=== PATIENT | male | born 1970 | race Caucasian/White ===

== ENCOUNTER 2017-07-07 07:59 | Inpatient (IN) | payer MEDICARE, OTHER ==
[~2017-07-07] VITALS: Ht 180.3 cm; Wt 97.8 kg
[~2017-07-07 07:59] MED LIST: ADDE10 PO; DULO60CA44 PO; RINGERS SOLUTION,LACTATED 1,000 ML IV ONE
[2017-07-07 08:24] LABS: BASOPHILS % (AUTO) 0.4 % (0.0-2.0); EOSINOPHILS % (AUTO) 2.3 % (1.0-6.0); HEMATOCRIT 43.4 % (41-53); HEMOGLOBIN 14.7 g/dL (13.5-17.5); LYMPHOCYTES # (AUTO) 1.9 K/uL (1.0-4.8); LYMPHOCYTES % (AUTO) 29.4 % (22.0-44.0); MEAN CORPUSCULAR HEMOGLOBIN 30.9 pg (26.0-34.0); MEAN CORPUSCULAR VOLUME 91 fL (80-100); MONOCYTES # (AUTO) 0.5 K/uL (0.1-1.0); MONOCYTES % (AUTO) 7.3 % (2.0-9.0); NEUTROPHILS # (AUTO) 3.8 K/uL (1.8-7.7); NEUTROPHILS % (AUTO) 60.6 % (40.0-70.0); PLATELET COUNT (AUTO) 236 K/uL (150-450); RED BLOOD CELL COUNT(AUTO) 4.77 MIL/uL (4.50-5.90); RED CELL DISTRIBUTION WIDTH 12.8 % (11.5-14.5)
[2017-07-07] MEDS ORDERED: PROPOFOL 1000 MG/ISO-OSM 100 ML IV ONE (08:24)
[2017-07-07] MEDS ORDERED: KETAMINE HCL 50 MG/ML 10 ML VIAL ONE (08:25)
[2017-07-07] MEDS ORDERED: CeFAZolin 2 GM/DEXTROSE 50 ML IV ONE (08:30)
[2017-07-07] MEDS ORDERED: RINGERS SOLUTION,LACTATED 1,000 ML IV ONE ×2 (08:30→09:50)
[2017-07-07 08:35] LABS: CALCIUM, TOTAL 9.6 mg/dL (8.8-10.5); CREATININE 1.31 mg/dL (0.60-1.30); POTASSIUM 4.3 mmol/L (3.5-5.1)
[2017-07-07 08:41] LABS: ALBUMIN 4.4 g/dL (3.4-5.0); BILIRUBIN,TOTAL 0.5 mg/dL (0.1-1.0); TOTAL PROTEIN, SERUM 7.5 g/dL (6.4-8.2)
[2017-07-07 08:49] LABS: PROTHROMBIN TIME 10.6 SEC (9.4-11.6)
[2017-07-07] MEDS ORDERED: MAG HYDROX/AL HYDROX/SIMETH 30 ML SUSP UDCUP PO PRN (09:15)
[2017-07-07] MEDS ORDERED: ZOLPIDEM TARTRATE 10 MG TABLET PO PRN ×2 (09:15→09:45)
[2017-07-07] MEDS ORDERED: DiphenhydrAMINE HCL 50 MG/ML VIAL IVP PRN (09:15)
[2017-07-07] MEDS ORDERED: DEXAMETHASONE SOD PHOS 4 MG/ML VIAL IVP PRN (09:15)
[2017-07-07] MEDS ORDERED: BENZOCAINE/MENTHOL LOZENGE [8 LOZENGES/PACKET] MM PRN (09:30)
[2017-07-07] MEDS: ACETAMINOPHEN 1000 MG/ISO-OSM 100 ML IV SCH ×2 (09:45→17:31)
[2017-07-07] MEDS ORDERED: DIAZEPAM 5 MG TABLET PO PRN (09:45)
[2017-07-07] MEDS ORDERED: MEPERIDINE-PF 25 MG/ML SYRINGE IVP PRN (09:45)
[2017-07-07] MEDS ORDERED: FentaNYL CITRATE-PF 100 MCG/2 ML VIAL ONE (10:55)
[2017-07-07] MEDS: FentaNYL CITRATE-PF 100 MCG/2 ML VIAL IVP PRN ×2 (10:56→11:15)
[2017-07-07] MEDS ORDERED: HYDROmorphone 2 MG/ML SYRINGE ONE (11:16)
[2017-07-07] MEDS: HYDROmorphone 2 MG/ML SYRINGE IVP PRN ×5 (11:24→19:07)
[2017-07-07] MEDS ORDERED: AMPHETAMINE/DEXTROAMPHETAMINE 10 MG TABLET PO SCH (11:45)
[2017-07-07] MEDS: DULoxetine HCL 60 MG CAPSULE PO SCH (11:45)
[2017-07-07 11:50] VITALS: BP 119/81
[2017-07-07] MEDS: CYCLOBENZAPRINE HCL 10 MG TABLET PO SCH ×2 (12:34→21:05)
[2017-07-07 14:37] VITALS: BP 124/76
[2017-07-07] MEDS ORDERED: INFLUENZA VIRUS VACCINE QVS 2017-18 (3YR+)/PF 60 MCG/0.5 ML SYRINGE IM ONE (15:15)
[2017-07-07 17:18] VITALS: BP 117/79
[2017-07-07] MEDS ORDERED: SODIUM CHLORIDE 0.9% 250 ML IV ONE (17:27)
[2017-07-07 19:53] VITALS: BP 110/69
[2017-07-07] MEDS: DOCUSATE SODIUM 100 MG CAPSULE PO SCH (21:05)
[2017-07-08] MEDS: ACETAMINOPHEN 1000 MG/ISO-OSM 100 ML IV SCH ×2 (01:32→09:38)
[2017-07-08] MEDS: HYDROmorphone 2 MG/ML SYRINGE IVP PRN (01:32)
[2017-07-08 01:33] VITALS: BP 116/71
[2017-07-08] MEDS ORDERED: LIDOCAINE HCL/PF 2% 5 ML VIAL IM ONE (04:41)
[2017-07-08] MEDS ORDERED: SUCCINYLCHOLINE CHLORIDE 20 MG/ML 10 ML VIAL IVP ONE (04:41)
[2017-07-08] MEDS ORDERED: NEOSTIGMINE METHYLSULFATE 1 MG/ML 10 ML VIAL IVP ONE (04:41)
[2017-07-08] MEDS ORDERED: PROPOFOL 1% 20 ML VIAL IVP ONE (04:41)
[2017-07-08] MEDS ORDERED: METOCLOPRAMIDE HCL 5 MG/ML 2 ML VIAL IVP ONE (04:41)
[2017-07-08] MEDS ORDERED: DEXAMETHASONE SOD PHOS 4 MG/ML VIAL IVP ONE (04:41)
[2017-07-08] MEDS ORDERED: GLYCOPYRROLATE 0.2 MG/ML VIAL IM ONE (04:41)
[2017-07-08] MEDS ORDERED: 0.9% SODIUM CHLORIDE 10 ML VIAL IVP ONE (04:41)
[2017-07-08] MEDS ORDERED: ROCURONIUM BROMIDE 10 MG/ML 5 ML VIAL IVP ONE (04:41)
[2017-07-08] MEDS ORDERED: ONDANSETRON HCL 4 MG/2 ML VIAL IVP ONE (04:41)
[2017-07-08 04:58] VITALS: BP 101/57
[2017-07-08] MEDS ORDERED: MIDAZOLAM HCL 2 MG/2 ML VIAL IVP ONE (05:44)
[2017-07-08] MEDS ORDERED: FentaNYL CITRATE-PF 100 MCG/2 ML VIAL IVP ONE (05:44)
[2017-07-08 07:30] VITALS: BP 119/73
[2017-07-08] MEDS: DOCUSATE SODIUM 100 MG CAPSULE PO SCH (08:29)
[2017-07-08] MEDS: CYCLOBENZAPRINE HCL 10 MG TABLET PO SCH (08:29)
[2017-07-08] MEDS: DULoxetine HCL 60 MG CAPSULE PO SCH (08:29)
[2017-07-08] MEDS ORDERED: OxyCODONE HCL/ACETAMINOPHEN 5-325 MG TABLET PO PRN (10:00)
== END 2017-07-08 11:20 | disposition home or self-care (01) | DRG 473 ==
LOC: 4E 07:59
PROVIDERS: ADMIT Orthopaedic Surgery Orthopaedic Surgery of the Spine; ATTEND Orthopaedic Surgery Orthopaedic Surgery of the Spine
PROC: 0RG20K0 Fusion of 2 or more Cervical Vertebral Joints with Nonautologous Tissue Substitute, Anterior Approach, Anterior Column, Open Approach (ICD-10-PCS; principal; 2017-07-07 09:00)
DX: M48.02 Spinal stenosis, cervical region (principal); F32.9 Major depressive disorder, single episode, unspecified; M50.323 Other cervical disc degeneration at C6-C7 level; F41.9 Anxiety disorder, unspecified; F43.10 Post-traumatic stress disorder, unspecified; Z53.29 Procedure and treatment not carried out because of patient's decision for other reasons; Z84.89 Family history of other specified conditions; Z80.42 Family history of malignant neoplasm of prostate
CPT/HCPCS: 87081; 97161; 97165; C1713; G0238; J0131; J0330; J0690; J1100; J1170; J2250; J2405; J2704; J2765; J3010; J3490; J7050; J7120